=== PATIENT | female | born 1995 | race Caucasian/White ===

== ENCOUNTER 2019-03-04 08:19 | Emergency (ER) | payer OTHER | END 2019-03-04 09:01 | disposition home or self-care (01) | LOC: FTE 08:19 | DX: L73.9 Follicular disorder, unspecified (principal); J45.909 Unspecified asthma, uncomplicated; F17.210 Nicotine dependence, cigarettes, uncomplicated | CPT/HCPCS: 99283; Z7502 ==

== ENCOUNTER 2019-03-07 18:52 | Emergency (ER) | payer OTHER ==
[2019-03-07] MEDS: DEXAMETHASONE 10 MG/ML 1 ML INJ PO (21:38)
== END 2019-03-07 21:59 | disposition home or self-care (01) ==
LOC: FTE 21:59
DX: L73.9 Follicular disorder, unspecified (principal); J45.909 Unspecified asthma, uncomplicated; F17.210 Nicotine dependence, cigarettes, uncomplicated
CPT/HCPCS: 99283; J1100